=== PATIENT | female | born 1965 | race African-American/Black ===

== ENCOUNTER 2016-07-24 23:39 | Emergency (ER) | payer OTHER ==
--- NOTE | 2016-07-25 00:22 | ED Physician Documentation ---
Allergy Symptoms - HPI Chief Complaint: Upper Respiratory Symptoms Additional Information: Pt is a 50 yo female that presents with sinus pain/pressure for 5-6 days. She also c/o left ear pain and feels like everything is "moving down into my chest. " Pt denies fever/chills, cough and N/V. Reports a history of sinus infections in the past. States she has tried some OTC nasal sprays without any relief of her symptoms. Bending over makes pressure/pain worse. Reports blowing yellow/ green snot during this time as well. Onset: days ago Swelling: none Shortness of Breath: none Trouble Swallowing/ Speaking: none - ROS EYES/ENT: sore throat (left side), other (left sided facial pressure/pain. left ear pain) CVS/RESP: denies: chest pain, shortness of breath, cough GI/: none CONST: none MS/SKIN/LYMPH: none NEURO/PSYCH: none - PAST HX Prior Allergic Reaction: none Medical History: hypertension (previously took medications) Allergies/Adverse Reactions: Allergies Allergy/AdvReac Type Severity Reaction Status Date / Time azithromycin AdvReac Nausea/Vomi Verified 07/25/16 00:33 [From Zithromax Z-Christian] ting Home Medications: Ambulatory Orders Medication Instructions Recorded Lisinopril [Zestril] 10 mg PO QDAY #30 tablet 07/25/16 Sulfamethoxazole/Trimethoprim 1 each PO BID #20 tab 07/25/16 [Bactrim Ds] - SOCIAL HX Smoking History: cigarettes - FAMILY HX Family History: No - REVIEWED ASSESSMENTS Nursing Assessment Reviewed: Yes Vitals Reviewed: Yes Allergy Symptons Exam - EXAM General Appearance: no acute distress HEENT: ENT nml inspection, pharynx nml, facial (pain with palpation of the left maxillary and frontal sinuses.) Skin: no rash Extremities: non-tender Neck: nml inspection. No: lymphadenopathy Respiratory: no resp. distress, breath sounds nml. No: wheezes CVS: reg rate & rhythm, heart sounds normal Neuro: oriented X3 Discharge Clincal Impression: Sinusitis, acute maxillary Qualifiers: Recurrence: not specified as recurrent Qualified Code(s): J01.00 - Acute maxillary sinusitis, unspecified Hypertension Qualifiers: Hypertension type: essential hypertension Qualified Code(s): I10 - Essential ( primary) hypertension Prescriptions: Lisinopril [Zestril] 10 mg PO QDAY #30 tablet Sulfamethoxazole/Trimethoprim [Bactrim Ds] 1 each PO BID #20 tab Referrals: Primary Doctor,No [Primary Care Provider] - 2 Days Additional Instructions: Take your medications as prescribed. Follow up with your PCP in the next 7-10 days. Return to the ED should your symptoms worsen or not improve. Home Medications: Ambulatory Orders Lisinopril [Zestril] 10 mg PO QDAY #30 tablet 07/25/16 Sulfamethoxazole/Trimethoprim [Bactrim Ds] 1 each PO BID #20 tab 07/25/16 Condition: Good Disposition: HOME, SELF-CARE Decision to Admit: NO Decision Time: 00:40
[2016-07-25] MEDS ORDERED: LISINOPRIL 5 MG TABLET ONE (00:44)
[2016-07-25] MEDS: LISINOPRIL 5 MG TABLET PO ONE (00:47)
[2016-07-25] MEDS: SULFAMETHOXAZOLE/TRIMETHOPRIM 1 EACH TABLET PO ONE (01:11)
[2016-07-25 02:21] VITALS: BP 179/103
== END 2016-07-25 01:17 | disposition home or self-care (01) ==
LOC: ED 23:39
DX: J01.00 Acute maxillary sinusitis, unspecified (principal); I10 Essential (primary) hypertension; F17.210 Nicotine dependence, cigarettes, uncomplicated
CPT/HCPCS: 99283; A9270